=== PATIENT | male | born 1985 | race Asian ===

== ENCOUNTER → 2019-10-09 | Outpatient (REF) | payer SELFPAY | LOC: M LAB REF 15:51 | PROVIDERS: ATTEND Physician Assistant | DX: Z20.828 Contact with and (suspected) exposure to other viral communicable diseases (principal) ==

== ENCOUNTER 2021-03-26 23:22 | Emergency (ER) | payer SELFPAY ==
[~2021-03-26] VITALS: Ht 170.2 cm; Wt 63.6 kg
[2021-03-27 01:17] LABS: RSV AMPLIFICATION NEGATIVE (NEGATIVE)
== END 2021-03-27 04:26 | disposition left against medical advice (07) ==
LOC: M ED 23:22
DX: Z53.21 Procedure and treatment not carried out due to patient leaving prior to being seen by health care provider (principal)

== ENCOUNTER 2023-03-19 22:32 | Emergency (ER) | payer BC, SELFPAY ==
[~2023-03-19] VITALS: Ht 175.3 cm; Wt 64.9 kg
[~2023-03-19 22:32] MED LIST: METH-1165 PO; NAPR-837 PO
[2023-03-20 00:58] VITALS: BP 137/101; TEMP 99; O2SAT 99
[2023-03-20 01:44] LABS: BASO # 0.1 10^3/uL (0.0-0.2); BASO % 0.8 % (0.0-1.0); EOS # 0.3 10^3/uL (0.0-0.5); EOS % 3.2 % (0.0-3.0); HEMATOCRIT 44.2 % (42.0-52.0); HEMOGLOBIN 14.8 g/dl (13.5-17.5); LYMPH # 2.5 10^3/uL (1.5-5.0); LYMPH % 31.5 % (24.0-44.0); MEAN CORPUSCULAR HEMOGLOBIN 30.5 pg (27.0-33.0); MEAN CORPUSCULAR HGB CONC 33.5 g/dl (32.0-36.5); MEAN CORPUSCULAR VOLUME 90.9 fl (80.0-96.0); MONO # 0.5 10^3/uL (0.0-0.8); MONO % 6.1 % (2.0-8.0); NEUTROPHILS # 4.6 10^3/uL (1.5-8.5); PLATELET COUNT, AUTOMATED 235 10^3/uL (150-450); RED BLOOD COUNT 4.86 10^6/uL (4.30-6.10); WHITE BLOOD COUNT 7.9 10^3/uL (4.0-10.0)
[2023-03-20 02:07] LABS: LIPASE 32 U/L (12-53)
[2023-03-20 02:09] LABS: ALBUMIN 4.1 G/DL (3.2-5.2); ALKALINE PHOSPHATASE 40 U/L (46-116); ALT/SGPT 22 U/L (7.0-40); AST/SGOT 21 U/L (<34); BILIRUBIN,DIRECT < 0.1 MG/DL (<0.4); BILIRUBIN,TOTAL 0.3 MG/DL (0.3-1.2); BLOOD UREA NITROGEN 17 MG/DL (9-23); CALCIUM LEVEL 9.5 MG/DL (8.5-10.1); CARBON DIOXIDE LEVEL 26 MMOL/L (20-31); CHLORIDE LEVEL 105 MMOL/L (98-107); CK-MB VALUE MASS 1.1 NG/ML (<3.6); CREATININE FOR GFR 0.62 MG/DL (0.70-1.30); GLOMERULAR FILTRATION RATE > 60.0 (>60); GLUCOSE, FASTING 95 MG/DL (60-100); POTASSIUM SERUM 4.3 MMOL/L (3.5-5.1); SODIUM LEVEL 138 MMOL/L (136-145)
[2023-03-20 02:32] LABS: CPK CREATINE PHOSPHOKINASE 188 U/L (46-171); MB/CK RELATIVE INDEX 0.58 (< OR =4)
[2023-03-20] MEDS ORDERED: IBUPROFEN 600MG TAB PO ONE (02:40)
[2023-03-20] MEDS ORDERED: predniSONE 20 MG TAB PO ONE (02:40)
== END 2023-03-20 03:14 | disposition home or self-care (01) ==
LOC: M ED 22:32
DX: R07.0 Pain in throat (principal); R07.9 Chest pain, unspecified; F17.210 Nicotine dependence, cigarettes, uncomplicated; Z79.1 Long term (current) use of non-steroidal anti-inflammatories (NSAID); Z79.899 Other long term (current) drug therapy
CPT/HCPCS: 36415; 70360; 71046; 80048; 80076; 82550; 82553; 83690; 84484; 85025; 93005; 93041; 94760; 99284; J7512

== ENCOUNTER → 2024-06-26 | Outpatient (CLI) | payer BC ==
[2024-06-26 11:25] LABS: HEMATOCRIT 46.7 % (42.0-52.0); HEMOGLOBIN 15.3 g/dl (13.5-17.5); MEAN CORPUSCULAR HEMOGLOBIN 29.6 pg (27.0-33.0); MEAN CORPUSCULAR HGB CONC 32.8 g/dl (32.0-36.5); MEAN CORPUSCULAR VOLUME 90.3 fl (80.0-96.0); PLATELET COUNT, AUTOMATED 258 10^3/uL (150-450); RED BLOOD COUNT 5.17 10^6/uL (4.30-6.10); WHITE BLOOD COUNT 5.5 10^3/uL (4.0-10.0)
[2024-06-26 11:42] LABS: HEMOGLOBIN A1c 5.3 % (4.0-6.0)
[2024-06-26 12:02] LABS: ALBUMIN 4.1 G/DL (3.2-5.2); ALKALINE PHOSPHATASE 42 U/L (40-129); ALT/SGPT 26 U/L (7.0-40); AST/SGOT 15 U/L (<34); BILIRUBIN,TOTAL 0.5 MG/DL (0.3-1.2); BLOOD UREA NITROGEN 17 MG/DL (9-23); CALCIUM LEVEL 9.3 MG/DL (8.5-10.1); CARBON DIOXIDE LEVEL 30 MMOL/L (20-31); CHLORIDE LEVEL 107 MMOL/L (98-107); CHOLESTEROL LEVEL 169 MG/DL (<200); CHOLESTEROL RISK RATIO 3.02 (<5); CREATININE FOR GFR 0.71 MG/DL (0.70-1.30); GLOMERULAR FILTRATION RATE > 60.0 (>60); GLUCOSE, FASTING 97 MG/DL (60-100); HDL CHOLESTEROL 55.9 MG/DL (>40); LDL CHOLESTEROL 78.3 MG/DL (<100); NON-HDL-C 113.1 MG/DL; POTASSIUM SERUM 4.4 MMOL/L (3.5-5.1); SODIUM LEVEL 144 MMOL/L (136-145); TOTAL PROTEIN 7.2 G/DL (5.7-8.2); TRIGLYCERIDES LEVEL 174 MG/DL (<150)
[2024-06-26 12:30] LABS: HIV 1&2 SCREEN NEGATIVE (NEGATIVE)
== END ==
LOC: M PLALAB 09:21
PROVIDERS: ATTEND Family Medicine
DX: Z87.11 Personal history of peptic ulcer disease (principal); Z13.6 Encounter for screening for cardiovascular disorders; Z11.9 Encounter for screening for infectious and parasitic diseases, unspecified

== ENCOUNTER → 2024-08-05 | Outpatient (CLI) | payer BC | LOC: M RAD 07:02 | PROVIDERS: ATTEND Surgery | DX: R10.11 Right upper quadrant pain (principal) ==

== ENCOUNTER 2024-08-15 10:42 | Day surgery (SDC) | payer BC ==
[~2024-08-15] VITALS: Ht 175.3 cm; Wt 59.8 kg
[2024-08-15] MEDS ORDERED: propofoL 200 MG/20 ML VIAL As Ordered ONE (11:38)
[2024-08-15] MEDS ORDERED: LIDOCAINE 2% 100MG/5ML SDV (FOR ANES.) As Ordered ONE (11:38)
[2024-08-15 11:49] VITALS: TEMP 97.7
[2024-08-15 12:15] VITALS: BP 112/80; O2SAT 98
== END 2024-08-15 12:31 | disposition home or self-care (01) ==
LOC: M OPP 10:42
PROVIDERS: ATTEND Surgery
DX: K22.89 Other specified disease of esophagus (principal); B96.81 Helicobacter pylori [H. pylori] as the cause of diseases classified elsewhere; K44.9 Diaphragmatic hernia without obstruction or gangrene; Z86.19 Personal history of other infectious and parasitic diseases; F17.290 Nicotine dependence, other tobacco product, uncomplicated

== ENCOUNTER 2025-04-15 21:58 | Emergency (ER) | payer OTHER, BC ==
[~2025-04-15] VITALS: Ht 175.3 cm; Wt 59.9 kg
[2025-04-16 05:38] VITALS: BP 128/75; TEMP 98.2; O2SAT 99
[2025-04-16] MEDS ORDERED: MEDR4PAK PO (05:39)
[2025-04-16] MEDS ORDERED: CYCL5TAB4 PO (05:39)
== END 2025-04-16 05:45 | disposition home or self-care (01) ==
LOC: M ED 21:58
DX: M54.12 Radiculopathy, cervical region (principal)